=== PATIENT | male | born 1985 | race Two or more races ===

== ENCOUNTER 2019-04-17 18:11 | Inpatient (IN) | payer MEDICAID, OTHER ==
[~2019-04-17] VITALS: Ht 182.9 cm; Wt 68.0 kg
--- NOTE | 2019-04-17 18:53 | NUR ---
weakness s/p iv heroin use, pt to bed 6, pt on monitor, vs noted, -sob, pending er provider eval
[2019-04-17] MEDS ORDERED: IV NS 0.9% 1,000 ML BAG IV ONE (19:30)
[2019-04-17 19:35] LABS: BASOPHILS % (AUTO) 0.2 % (0.0-2.0); EOSINOPHILS % (AUTO) 0.1 % (0.0-6.0); HEMATOCRIT 40 % (39-51); HEMOGLOBIN 13.4 g/dL (13.5-17.5); LYMPHOCYTES # (AUTO) 0.2 /CMM (0.8-4.8); LYMPHOCYTES % (AUTO) 8.9 % (20.0-44.0); MEAN CORPUSCULAR HGB CONC 34 g/dl (31.0-36.0); MEAN CORPUSCULAR VOLUME 87 fL (80-96); MONOCYTES % (AUTO) 0.3 % (2.0-12.0); NEUTROPHILS # (AUTO) 1.8 /CMM (1.8-8.9); NEUTROPHILS % (AUTO) 90.5 % (43.0-81.0); PLATELET COUNT (AUTO) 187 /CMM (150-450); RED BLOOD CELL COUNT(AUTO) 4.57 MIL/uL (4.5-6.0)
[2019-04-17 19:45] LABS: CALCIUM, SERUM 8.9 mg/dL (8.5-10.1); CARBON DIOXIDE 22 mmol/L (21-32); CHLORIDE 103 mmol/L (98-107); CREATININE 1.3 mg/dL (0.6-1.3); GLUCOSE 145 mg/dL (74-106); POTASSIUM 3.1 mmol/L (3.5-5.1); SODIUM SERUM 138 mmol/L (136-145); UREA NITROGEN, BLOOD 19 mg/dL (7-18)
[2019-04-17 19:58] LABS: ALANINE AMINOTRANSFERASE 209 U/L (12-78); ALBUMIN 3.5 g/dL (3.4-5.0); ALCOHOL, BLOOD < 3 mg/dL (0-0); ALKALINE PHOSPHATASE 123 U/L (46-116); ASPARTATE AMINOTRANSFERASE 408 U/L (15-37); BILIRUBIN,DIRECT 0.7 mg/dL (0.0-0.2); BILIRUBIN,TOTAL 1.3 mg/dL (0.2-1.0); TOTAL PROTEIN, SERUM 6.7 g/dL (6.4-8.2)
[2019-04-17 20:01] LABS: ACETAMINOPHEN < 2 ug/ml (10-30); SALICYLATE 0.9 mg/dL (2.8-20.0)
[2019-04-17 20:53] LABS: APPEARANCE,URINE CLEAR (CLEAR); BILIRUBIN,URINE NEGATIVE (NEGATIVE); BLOOD, URINE NEGATIVE Ery/uL (NEGATIVE); COLOR,URINE YELLOW (YELLOW); KETONES,URINE NEGATIVE (NEGATIVE); LEUKOCYTE ESTERASE ,URINE NEGATIVE (NEGATIVE); NITRITE, URINE NEGATIVE (NEGATIVE); PH,URINE 5.5 (5.0-8.0); PROTEIN,URINE NEGATIVE (NEGATIVE); UGLUCOSE NEGATIVE (NEGATIVE); UROBILINOGEN,URINE 0.2 EU/dL (0.2)
[2019-04-17] MEDS ORDERED: POTASSIUM CHLORIDE 20 MEQ TAB.PRT.SR PO ONE ×2 (21:00→22:46)
--- NOTE | 2019-04-17 22:16 | NUR ---
NOTED TACHYCARDIA/HYPOTENSION. ANAY TALAVERA AWARE
--- NOTE | 2019-04-17 22:17 | NUR ---
PER VERBAL ORDER BY SADAF, ANAY WILL HANG 1L NS IV X1 NOW
[2019-04-17] MEDS ORDERED: Magnesium 1GM/D5W 100ML PREMIX 100 ML IV ONE (22:30)
[2019-04-17] MEDS ORDERED: IV NS 0.9% 500 ML BAG IV ONE (23:30)
[2019-04-17] MEDS ORDERED: PIPERACILLIN /TAZOBACTAM 3.375 G in IV D5W 50 ML IV ONE (23:30)
[2019-04-17] MEDS ORDERED: VANCOMYCIN 1 GM VIAL ONE (23:32)
[2019-04-17] MEDS ORDERED: PIPERACILLIN /TAZOBACTAM 3.375 G VIAL IV ONE (23:32)
[2019-04-17] MEDS: VANCOMYCIN 1 GM in IV D5W 250 ML IV ONE ×3 (23:59)
[2019-04-18] VITALS (7 sets, daily range): BP systolic 71–109; BP diastolic 46–60
[2019-04-18] MEDS ORDERED: IV NS 0.9% 1,000 ML BAG IV ONE (00:30)
--- NOTE | 2019-04-18 00:33 | NUR ---
BED ASSIGNMENT 115-2
--- NOTE | 2019-04-18 00:38 | NUR ---
report given to tawanda for mere; pt will be transported to 1st floor once move packet is ready
--- NOTE | 2019-04-18 01:12 | NUR ---
TRANSPORTING PT TO [facility] PER PROTOCOL.
[2019-04-18] MEDS ORDERED: IV PREMIX NS +20MEQ KCL 1 L IV ONE (01:13)
[2019-04-18] MEDS ORDERED: LORAZEPAM INJ 2 MG/ML VIAL IV PRN (01:30)
[2019-04-18] MEDS ORDERED: ACETAMINOPHEN 325 MG TABLET PO PRN (01:30)
[2019-04-18] MEDS ORDERED: ONDANSETRON HCL/PF 4 MG/2 ML VIAL IVP PRN (01:30)
[2019-04-18] MEDS: Potassium Chloride 20 MEQ in IV NS 0.9% 1,000 ML IV PRN (01:42)
--- NOTE | 2019-04-18 01:42 | NUR ---
TELE-TD/BOILERMAKER PER PT REQUEST I TRIED TO CALL PTS FATHER ALAN RAY [phone] TO UPDATE HIM ON PTS CONDITION. NO ANSWER. VOICEMAIL WAS LEFT.
[2019-04-18] MEDS ORDERED: PIPERACILLIN /TAZOBACTAM 3.375 G in IV D5W 50 ML IV SCH ×2 (06:00→12:00)
[2019-04-18] MEDS ORDERED: PIPERACILLIN /TAZOBACTAM 3.375 G VIAL IV ONE (06:12)
--- NOTE | 2019-04-18 06:48 | NUR ---
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 WILL ENDORSE TO AM SHIFT.
--- NOTE | 2019-04-18 07:20 | NUR ---
RN OPENING NOTES PT IS RESTING IN BED. PT IS A&OX4. PT IS [address] CURRENTLY ON HR MONITOR. PT DENIES ANY PAIN OR SOB AT PRESENT MOMENT. BED IS LOCKED AND IN LOWEST POSITION WITH CALL LIGHT IN REACH. WILL CONTINUE TO MONITOR.
[2019-04-18] MEDS ORDERED: FILGRASTIM (300 MCG) 300 MCG/ML VIAL SQ SCH (08:00)
[2019-04-18] MEDS ORDERED: FEE PK DOSING 1 MIN EA MC ONE (08:14)
[2019-04-18] MEDS: PANTOPRAZOLE 40 MG TABLET.DR PO SCH (08:15)
[2019-04-18 08:49] LABS: BASOPHILS % (AUTO) 0.1 % (0.0-2.0); HEMATOCRIT 37 % (39-51); HEMOGLOBIN 12.2 g/dL (13.5-17.5); LYMPHOCYTES # (AUTO) 0.6 /CMM (0.8-4.8); MEAN CORPUSCULAR HGB CONC 33 g/dl (31.0-36.0); MEAN CORPUSCULAR VOLUME 86 fL (80-96); MONOCYTES # (AUTO) 1.1 /CMM (0.1-1.30); MONOCYTES % (AUTO) 5.5 % (2.0-12.0); NEUTROPHILS # (AUTO) 17.6 /CMM (1.8-8.9); NEUTROPHILS % (AUTO) 91.4 % (43.0-81.0); PLATELET COUNT (AUTO) 178 /CMM (150-450); RED BLOOD CELL COUNT(AUTO) 4.23 MIL/uL (4.5-6.0); WHITE BLOOD COUNT (AUTO) 19.2 K/uL (4.3-11.0)
[2019-04-18 09:06] LABS: ALBUMIN 2.9 g/dL (3.4-5.0); BILIRUBIN,TOTAL 1.4 mg/dL (0.2-1.0); CALCIUM, SERUM 8.3 mg/dL (8.5-10.1); CREATININE 1.3 mg/dL (0.6-1.3); MAGNESIUM 1.8 mg/dL (1.8-2.4); PHOSPHORUS 3.4 mg/dL (2.5-4.9); TOTAL PROTEIN, SERUM 5.9 g/dL (6.4-8.2)
[2019-04-18] MEDS: VANCOMYCIN 1.25 GM in IV D5W 250 ML IV SCH ×2 (10:05→20:50)
[2019-04-18] MEDS: PIPERACILLIN /TAZOBACTAM 3.375 G in IV D5W 50 ML IV SCH ×3 (12:40→23:39)
--- NOTE | 2019-04-18 12:44 | NUR ---
REPORT GIVEN TO JEREMIE FOR TRANSFER OF CARE.
--- NOTE | 2019-04-18 13:09 | NUR ---
drowsy, easily aroused, opened and quickly closed eyes. father at bedside, per father's " patient has been drug abused x 13 years, twice in rehab, but no success. RFA , big boil, red, swollen. too drowsy to complain at this time, if pain, will give NORCO. will monitor
--- NOTE | 2019-04-18 16:32 | NUR ---
per attending, ivf discontinued, and ATIVAN 0.5mg ivp, every 4hrs, prn . Until now, no episode of withdrawal noted, no complaint of pain, on RFA where the boil is. On double abx treatment, VANCO and ZOSYN ivpb
[2019-04-19 00:40] VITALS: BP 104/55
[2019-04-19] MEDS: Potassium Chloride 20 MEQ in IV NS 0.9% 1,000 ML IV PRN ×2 (02:35→16:08)
[2019-04-19 05:32] VITALS: BP_SYST 102; BP_SYST 98; BP_DIAS 53; BP_DIAS 54
[2019-04-19] MEDS: PIPERACILLIN /TAZOBACTAM 3.375 G in IV D5W 50 ML IV SCH ×4 (06:19→23:21)
[2019-04-19 06:54] LABS: BASOPHILS % (AUTO) 0.2 % (0.0-2.0); EOSINOPHILS % (AUTO) 0.2 % (0.0-6.0); HEMATOCRIT 36 % (39-51); HEMOGLOBIN 12.1 g/dL (13.5-17.5); LYMPHOCYTES # (AUTO) 1.6 /CMM (0.8-4.8); LYMPHOCYTES % (AUTO) 11.5 % (20.0-44.0); MEAN CORPUSCULAR HGB CONC 34 g/dl (31.0-36.0); MEAN CORPUSCULAR VOLUME 87 fL (80-96); MONOCYTES # (AUTO) 0.9 /CMM (0.1-1.30); MONOCYTES % (AUTO) 6.2 % (2.0-12.0); NEUTROPHILS # (AUTO) 11.4 /CMM (1.8-8.9); NEUTROPHILS % (AUTO) 81.9 % (43.0-81.0); PLATELET COUNT (AUTO) 159 /CMM (150-450); RED BLOOD CELL COUNT(AUTO) 4.17 MIL/uL (4.5-6.0)
--- NOTE | 2019-04-19 07:13 | NUR ---
MS RN OPENING NOTE RECEIVED PATIENT IN BED SLEEPING COMFORTABLY. PATIENT IN NO ACUTE DISTRESS. NO SOB NOTED. PATIENT BREATHING IS EVEN AND UNLABORED. IV PATENT AND INTACT. SAFETY PRECAUTIONS IN PLACE. PATIENT BED IS LOCKED AND IN LOWEST POSITION. CALL LIGHT WITHIN REACH. WILL CONTINUE TO MONITOR.
[2019-04-19 07:18] LABS: CALCIUM, SERUM 8.8 mg/dL (8.5-10.1); CREATININE 1.1 mg/dL (0.6-1.3); PHOSPHORUS 1.8 mg/dL (2.5-4.9); POTASSIUM 4.2 mmol/L (3.5-5.1)
[2019-04-19 08:00] VITALS: BP 91/44
[2019-04-19] MEDS: PANTOPRAZOLE 40 MG TABLET.DR PO SCH (08:23)
[2019-04-19] MEDS: LORAZEPAM INJ 2 MG/ML VIAL IV PRN ×2 (09:27→16:12)
[2019-04-19 10:04] LABS: BAND % (MANUAL) 11 % (0.0-5.0); LYMPHOCYTES % (MANUAL) 15 % (16-48); MONOCYTES % (MANUAL) 4 % (0-11.0); NEUTROPHILS % (MANUAL) 70 (42-76)
--- NOTE | 2019-04-19 10:19 | NUR ---
MS RN NOTE SPOKE WITH DR. RADER REGARDING HIDA SCAN ORDERED TODAY. INFORMED MD IF NEEDED STAT, DUE TO NUCLEAR MEDICINE UNABLE TO DO IT TILL SUNDAY. PER DR. RADER NO NEED TO CHANGE TO STAT ORDER. PATIENT WITH NO ABDOMINAL PAIN. PER MD CONTACTED DR. CAMP FOR CONSULT.
[2019-04-19] MEDS: VANCOMYCIN 1.25 GM in IV D5W 250 ML IV SCH (10:57)
[2019-04-19] MEDS ORDERED: K PHOS NEUTRAL 250 MG TABLET PO ONE (11:00)
[2019-04-19] MEDS: HYDROCODONE/APAP 5/325MG 1 EACH TABLET PO PRN ×2 (11:03→17:43)
[2019-04-19 16:00] VITALS: BP_SYST 103; BP_DIAS 65; BP_DIAS 68
[2019-04-19] MEDS: VANCOMYCIN 1 GM in IV D5W 250 ML IV SCH (16:08)
--- NOTE | 2019-04-19 18:24 | NUR ---
MS RN CLOSING NOTE PATIENT IN BED RESTING COMFORTABLY. PATIENT IN NO ACUTE DISTRESS. NO SOB NOTED. PATIENT BREATHING IS EVEN AND UNLABORED. IV PATENT AND INTACT. SAFETY PRECAUTIONS IN PLACE. PATIENT KEPT CLEAN, DRY AND COMFORTABLE THROUGHOUT SHIFT. NEEDS AND CONCERNS ADDRESSED. FAMILY AT THE BEDSIDE. PATIENT IN NO PAIN AT THIS TIME. PATIENT BED IS LOCKED AND IN LOWEST POSITION. CALL LIGHT WITHIN REACH. WILL ENDORSE CARE TO PM SHIFT FOR LYDIA.
[2019-04-20] VITALS: BP 110/59
[2019-04-20] MEDS: VANCOMYCIN 1 GM in IV D5W 250 ML IV SCH ×2 (00:07→08:49)
[2019-04-20 04:00] VITALS: BP 121/77
[2019-04-20] MEDS: PIPERACILLIN /TAZOBACTAM 3.375 G in IV D5W 50 ML IV SCH (05:14)
[2019-04-20] MEDS: PANTOPRAZOLE 40 MG TABLET.DR PO SCH (05:19)
[2019-04-20] MEDS: HYDROCODONE/APAP 5/325MG 1 EACH TABLET PO PRN (05:45)
[2019-04-20 08:00] VITALS: BP 111/80
[2019-04-20 08:23] LABS: ALBUMIN 3.2 g/dL (3.4-5.0); BILIRUBIN,DIRECT 0.1 mg/dL (0.0-0.2); BILIRUBIN,TOTAL 0.6 mg/dL (0.2-1.0); CALCIUM, SERUM 9.2 mg/dL (8.5-10.1); CREATININE 0.9 mg/dL (0.6-1.3); MAGNESIUM 1.9 mg/dL (1.8-2.4); PHOSPHORUS 2.5 mg/dL (2.5-4.9); POTASSIUM 4.3 mmol/L (3.5-5.1)
--- NOTE | 2019-04-20 09:07 | NUR ---
WIDE AWAKE, ALERT, CABLE TELEVISION LINE TECHNICIAN HAS HAD A DIFFICULT TIME TO DRAW BLOOD FROM THIS PATIENT ( DRUG ABUSE X 13 YEARS), LAST TIME USED IT PRIOR TO ED , 04/18 NO COMPLAINT OF PAIN, NO EPISODE OF WITHDRAWAL AT THIS TIME
[2019-04-20] MEDS ORDERED: LEVO500T75 PO (09:25)
--- NOTE | 2019-04-20 09:41 | NUR ---
seen by attending, patient is to get discharged to home with parents, once thery are here, will pull HL out.
--- NOTE | 2019-04-20 11:33 | NUR ---
until now, no parents show up to black pickler the patient., " cant wait any longer, he did call friend, no friend will help me either", " i need to go so bad, NOW" Patient has a rx for LEVAQUIN po, " no i dont want it, i dont need it", Escorted by staff to the door, alert, oriented, in no distress, no sign of withdrawal. Dr Madera came back to check whether he was given the RX, patient refused
== END 2019-04-20 12:00 | disposition home or self-care (01) | DRG 720 ==
LOC: ER 18:13 → TELE-TD 04-18 00:49 → MEDSG1 04-18 08:24
PROVIDERS: ADMIT Internal Medicine; ATTEND Internal Medicine
DX: A41.9 Sepsis, unspecified organism (principal); N17.0 Acute kidney failure with tubular necrosis; E83.42 Hypomagnesemia; E87.6 Hypokalemia; L02.413 Cutaneous abscess of right upper limb; F11.10 Opioid abuse, uncomplicated; R74.0 Nonspecific elevation of levels of transaminase and lactic acid dehydrogenase [LDH]; R93.2 Abnormal findings on diagnostic imaging of liver and biliary tract; Z59.0 Homelessness
CPT/HCPCS: 36415; 71045-TC; 76705-TC; 80048-TC; 80053-TC; 80074; 80076-TC; 80202-TC; 80305; 81000-TC; 83605-TC; 83735-TC; 84100-TC; 85025-TC; 86803; 87040-TC; 87081-TC; 93307-TC; G0378; G0480; J1442; J2060; J2543; J3370; J3475; J3480; J3490; J7040; J7060